=== PATIENT | female | born 1985 | race Caucasian/White ===

== ENCOUNTER 2019-06-01 17:20 | Inpatient (IN) | payer MEDICAID ==
[~2019-06-01] VITALS: Ht 175.3 cm; Wt 90.9 kg
[~2019-06-01 17:20] MED LIST: HYDR-3240 PO; IBUP-1222 PO
[2019-06-01] MEDS ORDERED: PREN1TAB60 PO (17:33)
[2019-06-01] MEDS ORDERED: ACET325C6 PO (17:33)
[2019-06-01] MEDS ORDERED: OXYTOCIN 30U/ 0.9% NaCL 500ML 500 ML IV PRN (17:45)
[2019-06-01] MEDS ORDERED: D5%-LACTATED RINGERS 1,000 ML IV SCH (17:45)
[2019-06-01] MEDS ORDERED: OXYTOCIN 30U/ 0.9% NaCL 500ML 500 ML IV ONE (17:45)
[2019-06-01] MEDS ORDERED: CALCIUM CARBONATE 500 MG TAB.CHEW PO PRN (18:00)
[2019-06-01] MEDS ORDERED: TERBUTALINE 1 MG/ML, 1ML SQ PRN (18:00)
[2019-06-01] MEDS ORDERED: FENTANYL PF 100 MCG/2ML IVPush PRN (18:00)
[2019-06-01] MEDS ORDERED: ONDANSETRON 2MG/ML, 2ML IVPush PRN ×2 (18:00→22:00)
[2019-06-01] MEDS ORDERED: FENTANYL PF 100 MCG/2ML IV PRN (18:00)
[2019-06-01] MEDS: LACTATED RINGERS 1,000 ML IV SCH ×2 (18:03→20:59)
[2019-06-01 18:04] VITALS: BP 131/82
[2019-06-01] MEDS ORDERED: OXYTOCIN 30U/ 0.9% NaCL 500ML 500 ML ONE (18:15)
[2019-06-01] MEDS ORDERED: NEWBORN KIT ONE (18:15)
[2019-06-01] MEDS ORDERED: MISOPROSTOL 200 MCG TABLET ONE (18:15)
[2019-06-01] MEDS ORDERED: LIDOCAINE 1%, 20ML ONE (18:15)
[2019-06-01 18:24] LABS: BASOPHILS # (AUTO) 0.07 x10^3/uL (0-0.1); BASOPHILS % (AUTO) 1 % (0-1); EOSINOPHILS % (AUTO) 1 % (1-7); LYMPHOCYTES # (AUTO) 1.57 x10^3/uL (1-3.4); LYMPHOCYTES % (AUTO) 14 % (22-44); MD NO; MEAN CORPUSCULAR HEMOGLOBIN 32.6 pg (27.0-34.8); MEAN CORPUSCULAR HGB CONC 33.3 g/dL (32.4-35.8); MEAN CORPUSCULAR VOLUME 97.9 fL (80-100); MEAN PLATELET VOLUME 7.9 fL (7.4-10.4); MONOCYTES % (AUTO) 7 % (2-9); NEUTROPHILS # (AUTO) 8.66 x10^3/uL (1.8-6.8); NEUTROPHILS % (AUTO) 77 % (42-75); PLATELET COUNT 130 x10^3/uL (130-400); RED BLOOD COUNT 4.07 x10^6/uL (3.82-5.3); RED CELL DISTRIBUTION WIDTH 13.2 % (9.6-15.2)
[2019-06-01] MEDS ORDERED: FENTANYL/BUPIV./NS/PF 250 ML EPIDCONT SCH ×2 (19:51→21:43)
[2019-06-01] MEDS ORDERED: FENTANYL PF 500 MCG, BUPIVACAINE/PF 0.5%, 30ML 62.5 ML in SODIUM CHLORIDE 0.9% 177.5 ML EPIDCONT SCH ×2 (20:00→22:00)
[2019-06-01] MEDS ORDERED: FENTANYL PF 100 MCG/2ML ONE ×2 (20:54→21:04)
[2019-06-01] MEDS ORDERED: CALCIUM CARBONATE 500 MG TAB.CHEW ONE (20:54)
[2019-06-01] MEDS ORDERED: BUPIVACAINE 0.25% ONE (21:04)
[2019-06-01] MEDS ORDERED: LACTATED RINGERS 1,000 ML IV SCH (21:43)
[2019-06-01] MEDS ORDERED: EPHEDRINE 50 MG/ML, 1ML IVPush PRN (22:00)
[2019-06-01] MEDS ORDERED: LACTATED RINGERS 1,000 ML IVBOLUS PRN (22:00)
[2019-06-01] MEDS ORDERED: LACTATED RINGERS 1,000 ML INTUTE SCH (23:30)
[2019-06-01] MEDS ORDERED: LACTATED RINGERS 1,000 ML INTUTE PRN (23:30)
[2019-06-02] MEDS ORDERED: MEASLES,MUMPS&RUBELLA VACC/PF 0.5 ML SQ PRN (04:30)
[2019-06-02] MEDS ORDERED: ONDANSETRON 2MG/ML, 2ML IV PRN (04:30)
[2019-06-02] MEDS ORDERED: RHOGAM FROM BLOOD BANK 1 NOTE EA IM/IV ONE (04:30)
[2019-06-02] MEDS ORDERED: MAGNESIUM HYDROXIDE 8%, 30ML UDC PO PRN (04:30)
[2019-06-02] MEDS ORDERED: CALCIUM CARBONATE 500 MG TAB.CHEW PO PRN (04:30)
[2019-06-02] MEDS ORDERED: MISOPROSTOL 200 MCG TABLET PR PRN (04:30)
[2019-06-02] MEDS ORDERED: DIPH,PERTUSS(ACELL),TET VAC/PF NC IM-VACC PRN (04:30)
[2019-06-02] MEDS ORDERED: OXYcodone/APAP 5/325MG TABLET PO PRN (04:30)
[2019-06-02] MEDS ORDERED: ACETAMINOPHEN 325 MG TABLET PO PRN ×2 (04:30)
[2019-06-02] MEDS ORDERED: OXYTOCIN 30U/ 0.9% NaCL 500ML 500 ML ONE (04:41)
[2019-06-02] MEDS: OXYTOCIN 30U/ 0.9% NaCL 500ML 500 ML IV SCH ×2 (05:11→14:25)
[2019-06-02] MEDS ORDERED: IBUPROFEN 600 MG TABLET ONE (07:15)
[2019-06-02] MEDS: IBUPROFEN 600 MG TABLET PO PRN ×3 (07:16→20:25)
[2019-06-02 08:09] VITALS: BP 107/76
[2019-06-02] MEDS: PRENATAL VIT/IRON/FA 1 EACH TABLET PO SCH (09:00)
[2019-06-02 12:19] LABS: BASOPHILS # (AUTO) 0.04 x10^3/uL (0-0.1); BASOPHILS % (AUTO) 0 % (0-1); EOSINOPHILS # (AUTO) 0.08 x10^3/uL (0-0.4); EOSINOPHILS % (AUTO) 1 % (1-7); LYMPHOCYTES # (AUTO) 1.57 x10^3/uL (1-3.4); LYMPHOCYTES % (AUTO) 13 % (22-44); MD NO; MEAN CORPUSCULAR HEMOGLOBIN 32.8 pg (27.0-34.8); MEAN CORPUSCULAR HGB CONC 33.1 g/dL (32.4-35.8); MEAN CORPUSCULAR VOLUME 98.8 fL (80-100); MEAN PLATELET VOLUME 8.4 fL (7.4-10.4); MONOCYTES # (AUTO) 0.73 x10^3/uL (0.2-0.8); MONOCYTES % (AUTO) 6 % (2-9); NEUTROPHILS # (AUTO) 9.27 x10^3/uL (1.8-6.8); NEUTROPHILS % (AUTO) 79 % (42-75); PLATELET COUNT 116 x10^3/uL (130-400); RED CELL DISTRIBUTION WIDTH 13.1 % (9.6-15.2)
[2019-06-02 12:20] VITALS: BP 114/70
[2019-06-02] MEDS: OXYcodone/APAP 5/325MG TABLET PO PRN ×3 (13:49→22:40)
[2019-06-02 17:05] VITALS: BP 124/83
[2019-06-02 20:08] VITALS: BP 119/79
[2019-06-02] MEDS: DOCUSATE 100 MG CAPSULE PO PRN (20:25)
[2019-06-02 23:45] VITALS: BP 97/58
[2019-06-03] MEDS: IBUPROFEN 600 MG TABLET PO PRN ×3 (04:56→19:53)
[2019-06-03] MEDS: OXYcodone/APAP 5/325MG TABLET PO PRN ×4 (04:56→17:52)
[2019-06-03 07:40] VITALS: BP 97/62
[2019-06-03] MEDS: PRENATAL VIT/IRON/FA 1 EACH TABLET PO SCH (08:58)
[2019-06-03] MEDS: DOCUSATE 100 MG CAPSULE PO PRN ×2 (08:58→19:53)
[2019-06-03] MEDS ORDERED: IBUP-1222 PO (11:23)
[2019-06-03 19:53] VITALS: BP 109/61
[2019-06-04] MEDS: IBUPROFEN 600 MG TABLET PO PRN ×2 (01:59→08:01)
[2019-06-04] MEDS: OXYcodone/APAP 5/325MG TABLET PO PRN ×2 (02:00→08:02)
[2019-06-04 07:52] VITALS: BP 108/72
[2019-06-04] MEDS: DOCUSATE 100 MG CAPSULE PO PRN (08:02)
[2019-06-04] MEDS: PRENATAL VIT/IRON/FA 1 EACH TABLET PO SCH (08:02)
== END 2019-06-04 11:42 | disposition home or self-care (01) | DRG 807 ==
LOC: LDOP 17:20 → LDIP 17:53 → 2NW 06-02 07:55
PROVIDERS: ADMIT Obstetrics & Gynecology; ATTEND Obstetrics & Gynecology
PROC: 10E0XZZ Delivery of Products of Conception, External Approach (ICD-10-PCS; principal; 2019-06-01)
PROC: 0KQM0ZZ Repair Perineum Muscle, Open Approach (ICD-10-PCS; 2019-06-01)
PROC: 10H07YZ Insertion of Other Device into Products of Conception, Via Natural or Artificial Opening (ICD-10-PCS; 2019-06-01)
PROC: 3E0R3BZ Introduction of Anesthetic Agent into Spinal Canal, Percutaneous Approach (ICD-10-PCS; 2019-06-01)
PROC: 00HU33Z Insertion of Infusion Device into Spinal Canal, Percutaneous Approach (ICD-10-PCS; 2019-06-01)
DX: O77.0 Labor and delivery complicated by meconium in amniotic fluid (principal); Z37.0 Single live birth; O42.02 Full-term premature rupture of membranes, onset of labor within 24 hours of rupture; O70.1 Second degree perineal laceration during delivery; O34.211 Maternal care for low transverse scar from previous cesarean delivery; Z3A.38 38 weeks gestation of pregnancy
CPT/HCPCS: 36415; J7121; 82803; 85025; 86850; 86900; 90715; G0378; J3010; J2590; J7120

== ENCOUNTER 2020-07-07 19:00 | Emergency (ER) | payer MEDICAID, OTHER ==
[~2020-07-07] VITALS: Ht 175.3 cm; Wt 86.0 kg
[~2020-07-07 19:00] MED LIST changes: +ACET325C6 PO; +PREN1TAB60 PO
--- NOTE | 2020-07-07 19:21 | NUR ---
C/O LOWER ABD CRAMPING AND VAGINAL BLEEDING, LMP 05/20/2020. PLACED ON VITALS MONITORS, AND CALL LIGHT WITHIN REACH.
[2020-07-07 19:41] LABS: BASOPHILS # (AUTO) 0.11 x10^3/uL (0-0.1); BASOPHILS % (AUTO) 1 % (0-1); EOSINOPHILS # (AUTO) 0.11 x10^3/uL (0-0.4); EOSINOPHILS % (AUTO) 1 % (1-7); LYMPHOCYTES # (AUTO) 2.93 x10^3/uL (1-3.4); LYMPHOCYTES % (AUTO) 28 % (22-44); MD NO; MEAN CORPUSCULAR HEMOGLOBIN 32.6 pg (27.0-34.8); MEAN CORPUSCULAR HGB CONC 33.6 g/dL (32.4-35.8); MEAN CORPUSCULAR VOLUME 96.8 fL (80-100); MEAN PLATELET VOLUME 8.9 fL (7.4-10.4); MONOCYTES # (AUTO) 0.65 x10^3/uL (0.2-0.8); MONOCYTES % (AUTO) 6 % (2-9); NEUTROPHILS # (AUTO) 6.54 x10^3/uL (1.8-6.8); NEUTROPHILS % (AUTO) 63 % (42-75); PLATELET COUNT 200 x10^3/uL (130-400); RED BLOOD COUNT 4.29 x10^6/uL (3.82-5.3); RED CELL DISTRIBUTION WIDTH 12.1 % (9.6-15.2)
[2020-07-07 19:50] LABS: ALBUMIN 3.6 g/dL (3.4-5.0); ANION GAP 7 mmol/L (5-15); CHLORIDE 107 mmol/L (98-107); CREATININE 0.79 mg/dL (0.55-1.02)
[2020-07-07 19:58] LABS: MICROSCOPIC NOT IND
--- NOTE | 2020-07-07 20:17 | NUR ---
PT NOT IN ROOM FOR ULTRASOUND.
[2020-07-07] MEDS ORDERED: RHOGAM FROM BLOOD BANK 1 NOTE EA IM/IV ONE (21:00)
--- NOTE | 2020-07-07 21:03 | NUR ---
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 REPORTED TO PROVIDER FOR ORDER.
[2020-07-07 22:16] VITALS: BP 96/49
== END 2020-07-07 22:23 | disposition home or self-care (01) ==
LOC: ED 22:06
DX: O20.0 Threatened abortion (principal); N93.8 Other specified abnormal uterine and vaginal bleeding; Z3A.01 Less than 8 weeks gestation of pregnancy
CPT/HCPCS: 36415; 36430; 76801; 80048; 81003; 82040; 84702; 85025; 86850; 86900; 96372; 99285; J2790

== ENCOUNTER 2021-03-26 10:50 | Inpatient (IN) | payer OTHER ==
[~2021-03-26] VITALS: Ht 175.3 cm; Wt 112.7 kg
[~2021-03-26 10:50] MED LIST changes: +HYDR-2214 PO; -HYDR-3240 PO
[2021-03-27] MEDS ORDERED: TERBUTALINE 1 MG/ML, 1ML IVPush PRN (08:00)
[2021-03-27] MEDS ORDERED: METOCLOPRAMIDE 5 MG/ML, 2ML IVPush PRN (08:00)
[2021-03-27] MEDS ORDERED: TERBUTALINE 1 MG/ML, 1ML SQ PRN (08:00)
[2021-03-27] MEDS ORDERED: LACTATED RINGERS 1,000 ML IV SCH ×4 (08:00→21:00)
[2021-03-27] MEDS ORDERED: FENTANYL PF 100 MCG/2ML IVPush PRN ×2 (08:00→22:00)
[2021-03-27] MEDS ORDERED: OXYTOCIN 30U/ 0.9% NaCL 500ML 500 ML IV ONE (08:00)
[2021-03-27] MEDS ORDERED: D5%-LACTATED RINGERS 1,000 ML IV SCH (08:00)
[2021-03-27] MEDS ORDERED: PLEASE ENTER HEIGHT AND WEIGHT MC SCH (08:00)
[2021-03-27] MEDS ORDERED: SODIUM CITRATE/CITRIC ACID 30 ML UDC PO PRN (08:00)
[2021-03-27] MEDS ORDERED: ONDANSETRON 2MG/ML, 2ML IVPush PRN ×3 (08:00→22:00)
[2021-03-27] MEDS ORDERED: FENTANYL PF 100 MCG/2ML IV PRN ×2 (08:00→08:30)
[2021-03-27] MEDS ORDERED: OXYTOCIN 30U/ 0.9% NaCL 500ML 500 ML IV PRN (08:00)
[2021-03-27 08:11] LABS: BASOPHILS % (AUTO) 0 % (0-1); EOSINOPHILS % (AUTO) 1 % (1-7); LYMPHOCYTES % (AUTO) 13 % (22-44); MEAN CORPUSCULAR HEMOGLOBIN 27.2 pg (27.0-34.8); MEAN CORPUSCULAR HGB CONC 32.7 g/dL (32.4-35.8); MEAN PLATELET VOLUME 8.5 fL (7.4-10.4); MONOCYTES % (AUTO) 6 % (2-9); NEUTROPHILS % (AUTO) 81 % (42-75); PLATELET COUNT 188 x10^3/uL (130-400); RED BLOOD COUNT 3.93 x10^6/uL (3.82-5.3); RED CELL DISTRIBUTION WIDTH 14.4 % (9.6-15.2)
[2021-03-27 08:13] LABS: MD NO
[2021-03-27] MEDS ORDERED: NEWBORN KIT ONE (08:25)
[2021-03-27] MEDS ORDERED: MISOPROSTOL 200 MCG TABLET ONE (08:25)
[2021-03-27] MEDS ORDERED: LIDOCAINE 1%, 20ML ONE (08:25)
[2021-03-27] MEDS ORDERED: ALBUTEROL SULFATE 2.5 MG/3 ML NPPB PRN (08:30)
[2021-03-27] MEDS ORDERED: MEPERIDINE/PF 25MG/0.5ML IVPush PRN (08:30)
[2021-03-27] MEDS ORDERED: LACTATED RINGERS 1,000 ML IVBOLUS PRN ×2 (08:30→11:00)
[2021-03-27] MEDS ORDERED: HYDROmorphone 2 MG/ML, 1ML IVPush PRN (08:30)
[2021-03-27] MEDS ORDERED: VANCOMYCIN PMX 1GM/200ML 200 ML IVPB SCH (08:30)
[2021-03-27] MEDS ORDERED: METOPROLOL 1 MG/ML, 5ML IV PRN (08:30)
[2021-03-27] MEDS ORDERED: NALOXONE 0.4 MG/ML, 1ML IVPush PRN ×2 (08:30→11:00)
[2021-03-27] MEDS ORDERED: LABETALOL 5MG/ML, 20ML IV PRN (08:30)
[2021-03-27] MEDS ORDERED: MIDAZOLAM 1 MG/ML, 2ML IV PRN (08:30)
[2021-03-27] MEDS ORDERED: OXYcodone 5 MG/5 ML ORAL.SOL UDC PO PRN (08:30)
[2021-03-27] MEDS ORDERED: PROMETHAZINE 25 MG/ML, 1ML IV PRN (08:30)
[2021-03-27] MEDS ORDERED: FENTANYL/BUPIV./NS/PF 250 ML EPIDCONT SCH ×2 (08:30→11:00)
[2021-03-27] MEDS ORDERED: VANCOMYCIN 1,000 MG in SODIUM CHLORIDE 0.9% 250 ML IV SCH (08:30)
[2021-03-27] MEDS ORDERED: EPHEDRINE 50 MG/ML, 1ML IVPush PRN ×3 (08:30→11:00)
[2021-03-27] MEDS ORDERED: hydrALAzine 20 MG/ML, 1ML IV PRN (08:30)
[2021-03-27] MEDS ORDERED: HYDROcodone/APAP 7.5-325MG/15ML UDC PO PRN (08:30)
[2021-03-27 08:43] VITALS: BP 119/67
[2021-03-27] MEDS ORDERED: BUPIVACAINE 0.25% ONE (12:27)
[2021-03-27] MEDS ORDERED: SODIUM CITRATE/CITRIC ACID 15 ML UDC ONE (16:31)
[2021-03-27] MEDS ORDERED: PHENYLEPHRINE 10 MG/ML ONE (19:29)
[2021-03-27] MEDS ORDERED: CEFAZOLIN 1,000 MG ONE (19:29)
[2021-03-27] MEDS ORDERED: ONDANSETRON 2MG/ML, 2ML ONE (19:29)
[2021-03-27] MEDS ORDERED: OXYTOCIN 10 UNITS/ML, 1ML ONE (19:29)
[2021-03-27] MEDS ORDERED: SUCCINYLCHOLINE 20 MG/ML, 10ML ONE (19:29)
[2021-03-27] MEDS ORDERED: DEXAMETHASONE 4 MG/ML, 1ML ONE (19:29)
[2021-03-27] MEDS ORDERED: EPHEDRINE 50 MG/ML, 1ML ONE (19:29)
[2021-03-27] MEDS ORDERED: PROPOFOL 10 MG/ML, 20ML ONE (19:29)
[2021-03-27] MEDS ORDERED: KETOROLAC 30 MG/1 ML ONE (19:29)
[2021-03-27] MEDS ORDERED: FENTANYL PF 100 MCG/2ML ONE ×2 (19:43→19:44)
[2021-03-27] MEDS ORDERED: morphine SULFATE/PF 0.5 MG/ML, 10ML ONE (19:47)
[2021-03-27] MEDS ORDERED: morphine SULFATE 10 MG/ML, 1ML IVPush PRN (21:00)
[2021-03-27] MEDS ORDERED: SIMETHICONE 80 MG CHEW TAB PO PRN (21:00)
[2021-03-27] MEDS: OXYTOCIN 30U/ 0.9% NaCL 500ML 500 ML IV SCH (21:00)
[2021-03-27] MEDS ORDERED: MEPERIDINE/PF 50 MG/ML IVPush PRN (21:00)
[2021-03-27] MEDS ORDERED: METHYLERGONOVINE 0.2 MG/ML IM PRN (21:00)
[2021-03-27] MEDS ORDERED: ONDANSETRON 2MG/ML, 2ML IV PRN (21:00)
[2021-03-27] MEDS ORDERED: IBUPROFEN 800 MG TABLET PO PRN (21:00)
[2021-03-27] MEDS ORDERED: MISOPROSTOL 200 MCG TABLET PR PRN (21:00)
[2021-03-27] MEDS ORDERED: MEPERIDINE/PF 100 MG/ML IVPush PRN (21:00)
[2021-03-27] MEDS ORDERED: ACETAMINOPHEN 325 MG TABLET PO PRN ×2 (21:00)
[2021-03-27] MEDS: LACTATED RINGERS 1,000 ML IV SCH (21:00)
[2021-03-27] MEDS ORDERED: MORPHINE SULFATE 4 MG/ML, 1ML IVPush PRN (21:00)
[2021-03-27] MEDS ORDERED: METOCLOPRAMIDE 5 MG/ML, 2ML IV PRN (21:00)
[2021-03-27] MEDS ORDERED: NALOXONE 0.4 MG/ML, 1ML IV PRN ×2 (22:00)
[2021-03-27] MEDS ORDERED: HYDROmorphone 1 MG/ML, 1ML INJ IVPush PRN (22:00)
[2021-03-27] MEDS ORDERED: OXYcodone/APAP 5/325MG TABLET PO PRN (22:00)
[2021-03-27] MEDS ORDERED: KETOROLAC 30 MG/1 ML IVPush SCH (22:00)
[2021-03-27] MEDS ORDERED: DIPHENHYDRAMINE 50 MG/ML, 1ML IV PRN (22:00)
[2021-03-27] MEDS ORDERED: NO SEDATIVES, TRANQUILIZERS OR ANTIEMETICS XX SCH (22:00)
[2021-03-27 22:30] VITALS: BP 119/76
[2021-03-28 01:00] VITALS: BP 129/76
[2021-03-28] MEDS: KETOROLAC 30 MG/1 ML IV SCH ×4 (02:09→20:25)
[2021-03-28 04:00] VITALS: BP 109/67
[2021-03-28 04:22] LABS: BASOPHILS % (AUTO) 0 % (0-1); EOSINOPHILS % (AUTO) 0 % (1-7); LYMPHOCYTES % (AUTO) 5 % (22-44); MEAN CORPUSCULAR HEMOGLOBIN 27.1 pg (27.0-34.8); MEAN CORPUSCULAR HGB CONC 33.1 g/dL (32.4-35.8); MEAN PLATELET VOLUME 8.8 fL (7.4-10.4); MONOCYTES % (AUTO) 4 % (2-9); NEUTROPHILS % (AUTO) 90 % (42-75); PLATELET COUNT 187 x10^3/uL (130-400); RED BLOOD COUNT 3.75 x10^6/uL (3.82-5.3); RED CELL DISTRIBUTION WIDTH 14.4 % (9.6-15.2)
[2021-03-28 04:39] LABS: MD SCAN
[2021-03-28] MEDS: LACTATED RINGERS 1,000 ML IV SCH ×2 (05:51→17:00)
[2021-03-28] MEDS: OXYTOCIN 30U/ 0.9% NaCL 500ML 500 ML IV SCH ×2 (07:00→17:00)
[2021-03-28 07:35] VITALS: BP 100/57
[2021-03-28] MEDS: PRENATAL VIT/IRON/FA 1 EACH TABLET PO SCH (08:00)
[2021-03-28] MEDS: DOCUSATE 100 MG CAPSULE PO PRN ×2 (08:00→20:26)
[2021-03-28] MEDS: OXYcodone/APAP 5/325MG TABLET PO PRN ×2 (08:02→20:33)
[2021-03-28 11:30] VITALS: BP 111/71
[2021-03-28 14:15] VITALS: BP 118/76
[2021-03-28] MEDS ORDERED: RHOGAM FROM BLOOD BANK 1 NOTE EA IM/IV ONE (17:00)
[2021-03-28 19:38] VITALS: BP 112/75
[2021-03-29] MEDS: KETOROLAC 30 MG/1 ML IV SCH ×3 (01:56→14:00)
[2021-03-29] MEDS: OXYcodone/APAP 5/325MG TABLET PO PRN ×4 (01:57→16:20)
[2021-03-29] MEDS: OXYTOCIN 30U/ 0.9% NaCL 500ML 500 ML IV SCH (03:00)
[2021-03-29] MEDS: LACTATED RINGERS 1,000 ML IV SCH (03:00)
[2021-03-29] MEDS ORDERED: IBUP-1222 PO (07:07)
[2021-03-29] MEDS ORDERED: OXYC1TAB14 PO (07:07)
[2021-03-29] MEDS: PRENATAL VIT/IRON/FA 1 EACH TABLET PO SCH (08:21)
[2021-03-29 08:30] VITALS: BP 110/73
[2021-03-29 15:30] VITALS: BP 121/80
== END 2021-03-29 16:50 | disposition home or self-care (01) | DRG 783 ==
LOC: LDIP 03-27 07:30 → 2NW 03-27 22:00
PROVIDERS: ADMIT Obstetrics & Gynecology; ATTEND Obstetrics & Gynecology
PROC: 0UB70ZZ Excision of Bilateral Fallopian Tubes, Open Approach (ICD-10-PCS; principal; 2021-03-27)
PROC: 10D00Z1 Extraction of Products of Conception, Low, Open Approach (ICD-10-PCS; 2021-03-27)
DX: O30.043 Twin pregnancy, dichorionic/diamniotic, third trimester (principal); O41.1230 Chorioamnionitis, third trimester, not applicable or unspecified; O32.1XX2 Maternal care for breech presentation, fetus 2; O34.211 Maternal care for low transverse scar from previous cesarean delivery; O36.5932 Maternal care for other known or suspected poor fetal growth, third trimester, fetus 2; O42.919 Preterm premature rupture of membranes, unspecified as to length of time between rupture and onset of labor, unspecified trimester; O69.3XX0 Labor and delivery complicated by short cord, not applicable or unspecified; O69.81X1 Labor and delivery complicated by cord around neck, without compression, fetus 1; O99.824 Streptococcus B carrier state complicating childbirth; Z30.2 Encounter for sterilization; Z37.2 Twins, both liveborn; Z3A.37 37 weeks gestation of pregnancy; Z80.41 Family history of malignant neoplasm of ovary; Z20.822 Contact with and (suspected) exposure to COVID-19; Z82.3 Family history of stroke; Z88.0 Allergy status to penicillin
CPT/HCPCS: 36415; J7121; 85025; 85461; 86592; 86850; 86900; 86923; 87635; 88302; 88307; G0378; J0690; J1100; J1885; J2274; J2405; J2704; J2790; J3010; J3370; J0330; J2370; J2590; J7050; J7120